=== PATIENT | female | born 1995 | race African-American/Black ===

== ENCOUNTER 2019-02-19 10:34 | Emergency (ER) | payer OTHER ==
[~2019-02-19] VITALS: Ht 157.5 cm; Wt 53.5 kg
--- NOTE | 2019-02-19 10:45 | PHYS DOC ---
Adult General Chief Complaint Chief Complaint: NAUSEA/VOMITING/DIARRHA HPI HPI Patient is a 23-year-old female with no significant medical history presenting to the ED today requesting a test after missing her menstrual cycles this month. Her last menstrual cycle was January 08, 2019. She's never been before. She states since yesterday she has had nausea and vomiting. Denies any abdominal pain or vaginal bleeding. Review of Systems Review of Systems Constitutional: Denies fever or chills [] Eyes: Denies change in visual acuity, redness, or eye pain [] HENT: Denies nasal congestion or sore throat [] Respiratory: Denies cough or shortness of breath [] Cardiovascular: No additional information not addressed in HPI [] GI: Reports possible , nausea, vomiting. Denies abdominal pain,bloody stools or diarrhea [] : Denies dysuria or hematuria [] Musculoskeletal: Denies back pain or joint pain [] Integument: Denies rash or skin lesions [] Neurologic: Denies headache, focal weakness or sensory changes [] Endocrine: Denies polyuria or polydipsia [] All other systems were reviewed and found to be within normal limits, except as documented in this note. Physical Exam Physical Exam Constitutional: Well developed, well nourished, no acute distress, non-toxic appearance. [] HENT: Normocephalic, atraumatic, bilateral external ears normal, oropharynx moist, no oral exudates, nose normal. [] Eyes: PERRLA, EOMI, conjunctiva normal, no discharge. [] Neck: Normal range of motion, no tenderness, supple, no stridor. [] Cardiovascular:Heart rate regular rhythm, no murmur [] Lungs & Thorax: Bilateral breath sounds clear to auscultation [] Abdomen: Bowel sounds normal, soft, no tenderness, no masses, no pulsatile masses. [] Skin: Warm, dry, no erythema, no rash. [] Back: No tenderness, no CVA tenderness. [] Extremities: No tenderness, no cyanosis, no clubbing, ROM intact, no edema. [] Neurologic: Alert and oriented X 3, normal motor function, normal sensory function, no focal deficits noted. [] Psychologic: Affect normal, judgement normal, mood normal. [] Current Patient Data Vital Signs Vital Signs Date Time Temp Pulse Resp B/P (MAP) Pulse Ox O2 Delivery O2 Flow Rate FiO2 02/19/19 10:46 98.8 94 16 123/83 (96) 100 Room Air 98.8 Lab Values Laboratory Tests Test 02/19/19 10:45 02/19/19 10:50 POC Urine HCG, Qualitative Hcg positive (Negative) Urine Collection Type Unknown Urine Color [place] Urine Clarity Clear Urine pH 6.0 Urine Specific [place] >=1.030 Urine Protein 30 mg/dL (NEG-TRACE) Urine Glucose (UA) Negative mg/dL (NEG) Urine Ketones (Stick) >=80 mg/dL (NEG) Urine Blood Negative (NEG) Urine Nitrite Negative (NEG) Urine Bilirubin Small (NEG) Urine Urobilinogen Dipstick 1.0 mg/dL (0.2 mg/dL) Urine Leukocyte Esterase Negative (NEG) Urine RBC 0 /HPF (0-2) Urine WBC 1-4 /HPF (0-4) Urine Squamous Epithelial Cells Many /LPF Urine Bacteria Mod /HPF (0-FEW) Urine Mucus Mod /LPF EKG EKG [] Radiology/Procedures Radiology/Procedures [] Course & Med Decision Making Course & Med Decision Making Pertinent Labs and Imaging studies reviewed. (See chart for details) This is a 23-year-old female patient presenting to the ED today with nausea and vomiting since yesterday, patient missed her menstrual cycle. Positive urine hCG, urine analysis is negative for infection. Discharged with Zofran. vitamins recommended. Follow-up with [facility] in one week. Instructed to push fluids. Dragon Disclaimer Dragon Disclaimer This electronic medical record was generated, in whole or in part, using a voice recognition dictation system. Departure Departure Impression: Primary Impression: Additional Impression: Nausea and vomiting during Disposition: HOME, SELF-CARE Condition: STABLE Referrals: NO PCP (PCP) ROSE BLAIR Jr, MD Follow up in one week Patient Instructions: ABCs of , Diet - Hyperemesis Gravidarum, Hyperemesis Gravidarum Additional Instructions: You were evaluated in the emergency room, your test is positive congratulations. Start taking vitamins. Push fluids. Take Zofran as needed for nausea or vomiting. Scripts Ondansetron (ONDANSETRON ODT) 4 Mg Tab.rapdis 1 TAB PO PRN Q6-8HRS, #16 TAB Prov: MUTUNGA,JACOB SCIENTIFIC INFORMATICS ANALYST 02/19/19 Problem Qualifiers Primary Impression: Weeks of gestation: less than 8 weeks Qualified Codes: Z3A.01 - Less than 8 weeks gestation of JACOB BROWNLEE SCIENTIFIC INFORMATICS ANALYST Feb 19, 2019 10:45
[2019-02-19 10:46] VITALS: BP 123/83
[2019-02-19 10:57] LABS: BILIRUBIN,URINE SMALL (NEG); CLARITY,URINE CLEAR; COLOR,URINE AMBER; NITRITE,URINE NEGATIVE (NEG); PROTEIN,URINE 30 mg/dL (NEG-TRACE)
[2019-02-19 11:23] LABS: BACTERIA,URINE MOD /HPF (0-FEW); RBC,URINE 0 /HPF (0-2); SQUAMOUS EPITHELIAL CELL,UR MANY /LPF
[2019-02-19] MEDS ORDERED: ONDA4TAB12 PO (11:42)
== END 2019-02-19 11:56 | disposition home or self-care (01) ==
LOC: ER 10:34
DX: O21.8 Other vomiting complicating pregnancy (principal); Z3A.01 Less than 8 weeks gestation of pregnancy
CPT/HCPCS: 81001; 81025; 99283